=== PATIENT | female | born 1985 | race Caucasian/White ===

== ENCOUNTER 2016-10-14 23:00 | Emergency (ER) | payer OTHER ==
[2016-10-14 21:43] LABS: BASOPHILS 0.2 %; BASOPHILS ABSOLUTE 0.03 10/3/uL (0.0-0.16); EOSINOPHILS 1.7 %; EOSINOPHILS ABSOLUTE 0.25 10/3/uL (0.0-0.53); ER CBC TAT 0 Hrs 07 Mins; HEMATOCRIT 37.6 % (36.0-48.0); HEMOGLOBIN 11.8 g/dL (12.0-16.0); IMMATURE GRANULOCYTES 0.3 %; IMMATURE GRANULOCYTES ABSOLUTE 0.05 10/3/uL (0.0-0.11); LYMPHOCYTES 42.4 %; LYMPHOCYTES ABSOLUTE 6.24 10/3/uL (0.67-4.30); MANUAL DIFF NO %; MEAN CORPUS HGB CONC 31.4 g/dL (32.0-36.0); MEAN CORPUSCULAR HEMOGLOB 24.3 pg (26.0-34.0); MEAN CORPUSCULAR VOLUME 77.4 fL (80-100); MEAN PLATELET VOLUME 11.4 fL (9.2-13.0); MONOCYTES 7.5 %; NEUTROPHILS 47.9 %; NEUTROPHILS ABSOLUTE 7.03 10/3/uL (2.02-8.40); PLATELET COUNT 421 10/3/uL (150-400); RBC DISTRIBUTION WIDTH 16.5 % (12.0-16.0); RED CELL COUNT 4.86 10/6/uL (4.0-5.6); WHITE BLOOD CELLS 14.7 10/3/uL (4.5-10.5)
[2016-10-14 21:58] LABS: BUN (BLOOD UREA NITROGEN) 4 MG/DL (6-23); CALCIUM, SERUM 8.8 MG/DL (8.5-10.4); CHLORIDE, SERUM 108 MMOL/L (96-112); CO2 (CARBON DIOXIDE) 26 MMOL/L (24-34); CREATININE 0.74 MG/DL (0.55-1.02); GFR AFRICAN AMERICAN 127 ML/MIN (>=60); GFR NON AFRICAN AMERICAN 109 ML/MIN (>=60); POTASSIUM, SERUM 3.5 MMOL/L (3.5-5.3); SGOT(AST) 17 U/L (5-40); SGPT(ALT) 29 U/L (5-65); SODIUM, SERUM 143 MMOL/L (135-148); TOTAL BILIRUBIN 0.3 MG/DL (0-1.2); TOTAL PROTEIN 7.6 G/DL (6.0-8.5)
[2016-10-14 22:02] LABS: ALBUMIN 3.8 G/DL (3.5-5.0); ALKALINE PHOSPHATASE 85 U/L (45-117); GLOBULIN 3.8 G/DL (2.5-4.1); GLUCOSE, SERUM 94 MG/DL (60-99)
[2016-10-14 22:07] LABS: EOSINOPHILS 1 %; EOSINOPHILS ABSOLUTE (CALC) 0.15 10/3/uL (0.0-0.53); ER DIFF TAT 0 Hrs 31 Mins; LYMPHOCYTES 33 %; LYMPHOCYTES ABSOLUTE (CALC) 4.85 10/3/uL (0.67-4.30); MONOCYTES 6 %; MONOCYTES ABSOLUTE (CALC) 0.88 10/3/uL (0.21-1.20); NEUTROPHILS ABSOLUTE (CALC) 8.82 10/3/uL (2.02-8.40); SEGMENTED NEUTROPHIL (0) 60 %; TOTAL NUCLEATED CELLS 100
[2016-10-14 22:08] LABS: PLATELET ESTIMATE SLT INC (ADEQUATE); RBC MORPHOLOGY NORM (NORMAL)
[2016-10-14 22:22] LABS: ASCORBIC ACID (UR NOT ORDER) NEG (NEG); BILIRUBIN, URINE NEGATIVE (NEG); KETONE, URINE NEGATIVE (NEG); LEUKOCYTE ESTERASE(NOT OR LARGE (NEG); NITRITE (URINE) NEG (NEG); WBC (NOT ORDERED) (RFLEX) 23 (0-5)
[2016-10-14 22:23] LABS: ER URINALYSIS TAT 0 Hrs 46 Mins
[~2016-10-14 23:00] MED LIST: AMITIZA8 MCG PO; DIL2TAB PO; EFFEX75 PO; EFFEXOR XR150 MG PO; EFFEXOR100 MG PO; EFFEXXR75 PO; FIBER PO; FLEX PO; FLORASTOR250 MG PO; HUMIRA PEN SC; IBU800 PO; IRON OTC PO; LEVSINTAB PO; LIBRAX PO; MULTIPLE VIT PO; MYTAB GAS125 MG PO; MYTAB GAS80 MG PO; PCET PO; PERCOCET1 TA4 PO; POTASSIUM95 MG PO; PR25 PO; PREV30 PO; PRILOSEC40 MG PO; REG PO; SLOW FE160 MG PO; SUPER B COMP OR; T PO; ULTRAM50 PO; VITAMIN D31000 UNIT PO; ZANAFLEX 4 MG TA4 MG PO; ZANTAC 150 PO; ZANTAC150 MG PO; ZOFRAN4 PO
[2016-10-15 01:57] LABS: DIRECT BILIRUBIN < 0.1 MG/DL (0.0-0.4); INDIRECT BILIRUBIN(NOT ORDER) 0.2 MG/DL (0.1-0.9)
[2016-11-10] MEDS ORDERED: ULTRAM50 PO (18:58)
[2016-11-10] MEDS ORDERED: LIOR10 PO (18:59)
[2017-04-19] MEDS ORDERED: NEUR300 PO (13:49)
[2017-04-19] MEDS ORDERED: V2 PO (13:51)
[2017-04-19] MEDS ORDERED: ACET500CAP PO (13:51)
[2017-04-19] MEDS ORDERED: NORCO1 TAB PO (13:51)
== END 2016-10-15 04:47 | disposition home or self-care (01) ==
LOC: ER 23:00
PROVIDERS: Emergency Medicine
DX: N39.0 Urinary tract infection, site not specified (principal); D72.829 Elevated white blood cell count, unspecified; K31.84 Gastroparesis; F17.200 Nicotine dependence, unspecified, uncomplicated; Z88.5 Allergy status to narcotic agent; Z88.8 Allergy status to other drugs, medicaments and biological substances
CPT/HCPCS: 74176; 80053; 81001; 82248; 83690; 84703; 85025; 87086; 96374; 96375; 99285; A9270-GY; J1200; J1885; J1980; J2550

== ENCOUNTER 2016-11-17 07:50 | Day surgery (SDC) | payer OTHER ==
--- NOTE | ~2016-11-17 | EGD ---
EGD REPORT [facility] [address] [place] [address] NAME: MOSHE SANCHEZ : 89 STATUS : REG [facility]#: [id number] AGE: 31 ADM/REG DATE : 11/17/16 MR#: [id number] REPORT SERV DATE: 11/17/16 DICTATED BY: DATE: REPORT STATUS : Draft TRANSCRIBED BY: [employer] DATE: 11/17/16 [facility] Patient Name: Moshe Sanchez Date of : 1985 Attending MD: ELVIA KEENE MD Procedure Date No Time: 11/17/2016 Procedure: Upper GI endoscopy Indications: Anemia, Crohn's disease, Gastroparesis Referring MD: RACHEL BECKHAM Medicines: Monitored Anesthesia Care Complications: No immediate complications. Procedure: Pre-Anesthesia Assessment: - ASA Grade Assessment: III - A patient with severe systemic disease. After obtaining informed consent, the endoscope was passed under direct vision. Throughout the procedure, the patient's blood pressure, pulse, and oxygen saturations were monitored continuously. The GIF [id number] was introduced through the mouth, and advanced to the third part of duodenum. The upper GI endoscopy was accomplished without difficulty. The patient tolerated the procedure well. Findings: The Z-line was irregular and was found 35 cm from the incisors. Biopsies were taken with a cold forceps for histology. No other significant abnormalities were identified in a careful examination of the esophagus. There is no endoscopic evidence of bleeding, areas of erosion, stenosis or varices in the entire esophagus. The entire examined stomach was normal. There is no endoscopic evidence of mucosal abnormalities, ulceration, varices or bezoar/food (residue) in the entire examined stomach. The examined duodenum was normal. There is no endoscopic evidence of mucosal abnormalities, stenosis or ulceration in the entire examined duodenum. The cardia and gastric fundus were normal on retroflexion. Using the endoscope, the video capsule enteroscope was advanced into the duodenal bulb. Impression: - Z-line irregular, 35 cm from the incisors. Biopsied. - Normal stomach. - Normal examined duodenum. - Successful completion of the Video Capsule Enteroscope placement. EGD REPORT [address] [address] NAME: MOSHE SANCHEZ : [birth year] STATUS : REG [facility] PAT#: [id number] AGE: 31 ADM/REG DATE : 11/17/16 MR#: [id number] REPORT SERV DATE: 11/17/16 DICTATED BY: DATE: REPORT STATUS : Draft TRANSCRIBED BY: [employer] DATE: 11/17/16 Recommendation: - Patient has a contact number available for emergencies. The signs and symptoms of potential delayed complications were discussed with the patient. Return to normal activities tomorrow. Written discharge instructions were provided to the patient. - Return to previous diet. - Discharge patient to home. - Continue present medications. - Await pathology results. Procedure Code(s): --- Professional --- 69686, Esophagogastroduodenoscopy, flexible, transoral; with biopsy, single or multiple Diagnosis Code(s): --- Professional --- K22.8, Other specified diseases of esophagus K50.90, Crohn's disease, unspecified, without complications D64.9, Anemia, unspecified K31.84, Gastroparesis CPT copyright 2013 [employer]. All rights reserved. The codes documented in this report are preliminary and upon sales training coordinator review may be revised to meet current compliance requirements. ELVIA KEENE MD 11/17/2016 8:51 AM This report has been signed electronically. Number of Addenda: 0 Note Initiated On: 11/17/2016 8:30 AM Scope Withdrawal Time 0 hours 0 minutes 0 seconds
[~2016-11-17 07:50] MED LIST changes: +LIOR10 PO
[2017-04-19] MEDS ORDERED: NEUR300 PO (13:49)
[2017-04-19] MEDS ORDERED: ACET500CAP PO (13:51)
[2017-04-19] MEDS ORDERED: NORCO1 TAB PO (13:51)
[2017-04-19] MEDS ORDERED: V2 PO (13:51)
== END 2016-11-17 23:59 | disposition home or self-care (01) ==
LOC: DMU 07:50
PROVIDERS: Internal Medicine Gastroenterology
PROC: 0DB58ZX Excision of Esophagus, Via Natural or Artificial Opening Endoscopic, Diagnostic (ICD-10-PCS; principal; 2016-11-17 09:00)
DX: K50.90 Crohn's disease, unspecified, without complications (principal); K31.84 Gastroparesis; K22.8 Other specified diseases of esophagus; D64.9 Anemia, unspecified; F17.200 Nicotine dependence, unspecified, uncomplicated; M19.90 Unspecified osteoarthritis, unspecified site; K21.9 Gastro-esophageal reflux disease without esophagitis; F41.9 Anxiety disorder, unspecified; G43.909 Migraine, unspecified, not intractable, without status migrainosus; F32.9 Major depressive disorder, single episode, unspecified; Z88.5 Allergy status to narcotic agent
CPT/HCPCS: 84703; 88305; A9270-GY; J2405